=== PATIENT | male | born 1955 | race Caucasian/White ===

== ENCOUNTER 2023-01-14 09:42 | Outpatient (CLI) | payer MEDICARE, BC ==
[2023-01-14] MEDS ORDERED: Iopamidol 370 76% 100 ML VIAL ONE (09:52)
== END 2023-01-14 09:43 | disposition home or self-care (01) ==
LOC: CSHCT 09:42
PROVIDERS: ATTEND Nurse Practitioner Family
DX: H93.8X2 Other specified disorders of left ear (principal); H92.12 Otorrhea, left ear; H74.8X3 Other specified disorders of middle ear and mastoid, bilateral; G31.89 Other specified degenerative diseases of nervous system; N18.30 Chronic kidney disease, stage 3 unspecified; E55.9 Vitamin D deficiency, unspecified
CPT/HCPCS: 36415; 70470; 70480; 80048; 82040; 82565; 83735; 83970; 84100; 85025; Q9967